=== PATIENT | male | born 1980 | race African-American/Black ===

== ENCOUNTER 2021-07-02 12:46 | Emergency (ER) | payer SELFPAY ==
[~2021-07-02] VITALS: Ht 172.7 cm; Wt 75.0 kg
[2021-07-02 12:50] VITALS: BP 134/82
[2021-07-02 16:27] LABS: BASOPHILS % 0.2 % (0.0-2.0); EOSINOPHILS % 1.7 % (0.0-5.0); HEMATOCRIT. 43.1 % (42.0-52.0); HEMOGLOBIN. 14.5 g/dL (14.0-18.0); LYMPHOCYTES % 30.3 % (20.0-50.0); MEAN CORPUSCULAR HEMOGLOBIN 29.9 pg (28.0-32.0); MEAN CORPUSCULAR VOLUME 89.2 fL (80.0-94.0); MEAN PLATELET VOLUME 7.8 fl (7.4-10.4); MONOCYTES % 8.4 % (2.0-8.0); NEUTROPHILS % 59.4 % (40.0-76.0); PLATELET 202 x1000/uL (130-400); RED BLOOD CELL COUNT 4.84 mill/uL (4.7-6.1); RED CELL DISTRIBUTION WIDTH 13.7 % (11.6-14.6)
[2021-07-02 16:28] LABS: CHLORIDE 109 mEq/L (98-107)
[2021-07-02 16:31] LABS: PROTHROMBIN TIME 10.8 sec (9.6-11.0)
[2021-07-02] MEDS ORDERED: NA PHOS,M-B/NA PHOS,DI-BA ENEMA 118ML PR ONE (17:00)
[2021-07-02] MEDS ORDERED: DOCU-138 MT (18:42)
[2021-07-02] MEDS ORDERED: SENN-257 MT (18:42)
== END 2021-07-02 22:54 | disposition home or self-care (01) ==
LOC: ER 13:07
DX: K59.00 Constipation, unspecified (principal); F31.9 Bipolar disorder, unspecified; Z88.0 Allergy status to penicillin
CPT/HCPCS: 36415; 74176; 80053; 85025; 99284